=== PATIENT | female | born 1975 | race Caucasian/White ===

== ENCOUNTER 2016-10-21 22:00 | Emergency (ER) | payer SELFPAY ==
[~2016-10-21 22:00] MED LIST: GABA100C2 PO; GLYB1TAB51 PO; LEXA20TA PO; RISP1SOL15 PO
[2016-10-21 22:02] VITALS: BP 134/88; PULSE 97; RESP 14; TEMP 98.8; O2SAT 98
--- NOTE | 2016-10-21 22:35 | PD ---
HPI Chief Complaint: Eye Problems/Injury Time Seen by Provider: 22:27 Travel History International Travel<30 days: No Contact w/Intl Traveler<30days: No Traveled to known affect area: No History of Present Illness HPI 40-year-old female with history of bipolar disorder, diabetes per chart review. She presents for evaluation of right upper eyelid pain. She reports over the past 2 days she has had pain and swelling of the right upper eyelid. Pain is throbbing, constant, worse with palpation. She reports that the pain in the eyelid is now causing a generalized headache. She tried using [id number] NSAIDs and Tylenol with minimal relief. She denies any trauma to the skin. She tried putting warm compresses at the suggestion of the pharmacist but symptoms persisted which prompted evaluation. She does not wear contacts. Denies any pain to the right eye itself. Denies any pain with extraocular range of motion, photophobia or blurred vision. She has no other complaints. PFSH Past Medical History Asthma: Yes (ALLERGIES) Blood Disorders: No Bipolar Disorder: Yes Anxiety: Yes Depression: Yes (PTSD) Heart Rhythm Problems: No Cancer: No Cardiovascular Problems: No High Cholesterol: No Chemotherapy: No Chest Pain: No Congestive Heart Failure: No COPD: No Cerebrovascular Accident: Yes (2010) Diabetes: Yes Patient Takes Glucophage: No Diminished Hearing: No Endocrine: No Genitourinary: No Immune Disorder: No Musculoskeletal: No Neurologic: Yes (CVA 2010) Psychiatric: Yes (BI-POLAR,PTSD) Reproductive: No Respiratory: No Radiation Therapy: No Sleep Apnea: No Thyroid Disease: No ?: Not : 3 Para: 3 Tubal Ligation: Yes Past Surgical History Cholecystectomy: Yes (1997) Other Surgery: Yes (TUBAL AND CHOLEY) Social History Alcohol Use: No Tobacco Use: No Substance Use: No (cocaine, marijuana and crack sober 2003) Allergies-Medications (Allergen,Severity, Reaction): Coded Allergies: Bactrim (Verified Allergy, Severe, VOMITING, 10/21/16) Sulfa (Verified Allergy, Severe, VOMITING, 10/21/16) Reported Meds & Prescriptions Reported Meds & Active Scripts Active Clindamycin (Clindamycin HCl) 300 Mg Cap 300 Mg PO TID Glyburide 5 Mg Tab 5 Mg PO BID Diabeta (Glyburide) 5 Mg Tab 10 Mg PO BID Reported Risperdal (Risperidone) 1 Mg/Ml Leonie 1 Mg PO HS Lexapro (Escitalopram Oxalate) 20 Mg Tab 20 Mg PO DAILY Neurontin 100 mg Cap (Gabapentin) 100 Mg Cap 300 Mg PO TID 300MG AM; 300MG AT LUNCH; 600MG HS Review of Systems General / Constitutional: No: Fever, Chills Eyes: No: Diploplia, Blurred Vision, Photophobia, Drainage, Foreign Body Sensation, Pain Skin: Positive Other (R upper eyelid redness, pain, scap) Physical Exam Narrative GENERAL: Well-developed well-nourished female in no acute distress SKIN: Warm and dry. Mentation reveals a small scabbed lesion to the right upper eyelid. There is some surrounding induration and erythema of the upper eyelid. HEAD: Atraumatic. Normocephalic. EYES: Pupils equal and round reactive to light extraocular muscles are intact. There is no proptosis, no pain with extraocular range of motion, no chemosis. There is no infraorbital erythema or induration. ENT: No nasal bleeding or discharge. Mucous membranes pink and moist. NECK: Trachea midline. No JVD. CARDIOVASCULAR: Regular rate and rhythm. No murmur appreciated. RESPIRATORY: No accessory muscle use. Clear to auscultation. Breath sounds equal bilaterally. Data Data Last Documented VS Vital Signs Date Time Temp Pulse Resp B/P Pulse Ox O2 Delivery O2 Flow Rate FiO2 10/21/16 22:02 98.8 97 14 134/88 98 Room Air Orders Blood Glucose (10/21/16 22:36) Clindamycin (Cleocin) (10/21/16 22:45) Clindamycin Inj (Cleocin Inj) (10/21/16 22:45) MDM Medical Decision Making Medical Screen Exam Complete: Yes Emergency Medical Condition: Yes Medical Record Reviewed: Yes Differential Diagnosis Periorbital cellulitis, orbital cellulitis, hordeolum Narrative Course 40-year-old female with right upper eyelid pain for 2 days. Examination reveals cauterized periorbital cellulitis to the right upper eyelid with associated scab which is likely the source of infection. No evidence of orbital cellulitis. Plan is for outpatient treatment with clindamycin. She was given 600 mg injection here. Discussed signs and symptoms or to return to the emergency room. Diagnosis Primary Impression: Periorbital cellulitis of right eye Additional Instructions: Antibiotic as prescribed. Warm compresses several times a day 10 minutes at a time to the affected area. Follow up closely with primary care. Return for evidence of worsening infection such as increasing redness, increasing pain behind or around your eye, fevers Med/Other Pt SpecificInfo: Prescription(s) given Scripts Clindamycin 300 Mg [id number] Mg PO TID #30 CAP Ref 0 Prov:Sophie Soriano MD 10/21/16 Disposition: 01 DISCHARGE HOME Condition: Stable Jann Reyes October 21, 2016 22:35
[2016-10-21] MEDS ORDERED: CLINDAMYCIN 150 MG CAP PO ONE (22:45)
[2016-10-21] MEDS ORDERED: CLINDAMYCIN PHOS 600 MG/4 ML VIAL IM ONE (22:45)
[2016-10-21] MEDS ORDERED: CLIN1CAP6 PO (23:02)
== END 2016-10-21 23:30 | disposition home or self-care (01) ==
LOC: NEPD 22:00
DX: L03.213 Periorbital cellulitis (principal)
CPT/HCPCS: 96372